=== PATIENT | male | born 1990 | race Caucasian/White ===

== ENCOUNTER 2017-01-19 19:27 | Emergency (ER) | payer BC, OTHER ==
[~2017-01-19] VITALS: Ht 175.3 cm; Wt 70.3 kg
[2017-01-19 19:40] LABS: URINE BILIRUBIN NEGATIVE (Negative); URINE BLOOD NEGATIVE (Negative); URINE COLOR YELLOW; URINE GLUCOSE-RANDOM* NEGATIVE (Negative); URINE KETONES NEGATIVE (Negative); URINE NITRITE NEGATIVE (Negative); URINE PROTEIN (DIPSTICK) NEGATIVE (Negative); URINE SPECIFIC GRAVITY 1.015 (1.003-1.035); URINE UROBILINOGEN 0.2 E.U./dl (0.2-1.0)
[2017-01-19] MEDS ORDERED: PHENERGAN 25 MG25 M1 PO (19:48)
[2017-01-19] MEDS ORDERED: ZOFRAN ODT4 MG PO (19:48)
[2017-01-19 20:04] LABS: HEMATOCRIT 44.5 % (42.0-52.0); HEMOGLOBIN 15.3 gm/dL (14.0-18.0); MCH 30.4 pg (26.0-34.0); MCHC 34.4 g/dL (28.0-37.0); MCV 88.4 fL (80.0-100.0); PLATELET COUNT 203 thou/uL (150-400); RBC 5.03 mil/uL (4.50-6.00); RDW 11.8 % (10.5-14.5); WBC 6.7 thou/uL (4.0-11.0)
[2017-01-19 20:05] LABS: MANUAL DIFF YES
[2017-01-19 20:13] LABS: CALCIUM 9.1 mg/dL (8.5-10.1); CREATININE 1.2 mg/dL (0.7-1.3); POTASSIUM 3.9 mmol/L (3.5-5.1)
[2017-01-19 20:24] LABS: ALBUMIN 4.1 g/dL (3.4-5.0); DIRECT BILIRUBIN 0.2 mg/dL (<0.1-0.3); TOTAL BILIRUBIN 0.9 mg/dL (<0.1-1.0); TOTAL PROTEIN 7.9 g/dL (6.4-8.2)
[2017-01-19 20:26] LABS: ABSOLUTE NEUTROPHILS 5.8 thou/uL (1.4-8.2); TOTAL CELL COUNT 100
[2017-01-19 20:50] VITALS: BP 113/63
== END 2017-01-19 21:05 | disposition home or self-care (01) ==
LOC: ER 19:27
PROVIDERS: Emergency Medicine
DX: R11.10 Vomiting, unspecified (principal); B34.9 Viral infection, unspecified; M79.1 Myalgia; R19.7 Diarrhea, unspecified